=== PATIENT | male | born 1990 | race Caucasian/White ===

== ENCOUNTER 2024-03-18 07:38 | Emergency (ER) | payer OTHER ==
[2024-03-18 07:58] VITALS: BP 157/82; PULSE 99; RESP 20; TEMP 98.6; BMI 33.0
[2024-03-18] MEDS ORDERED: ACETAMINOPHEN 500 MG TABLET (FP) ONE (08:17)
[2024-03-18] MEDS ORDERED: LIDOCAINE 4% PATCH TP ONE (08:17)
[2024-03-18] MEDS: LIDOCAINE 4% PATCH TP ONE (08:27)
[2024-03-18] MEDS: ACETAMINOPHEN 500 MG TABLET (FP) PO ONE (08:27)
[2024-03-18 10:53] LABS: URINE APPEARANCE CLEAR; URINE BILIRUBIN NEGATIVE (NEGATIVE); URINE COLOR YELLOW; URINE GLUCOSE (UA) NEGATIVE (NEGATIVE); URINE KETONE TRACE (NEGATIVE); URINE UROBILINOGEN 0.2 mg/dL (0.2-1.0)
[2024-03-18 10:54] LABS: URINE LEUK ESTERASE NEGATIVE (NEGATIVE); URINE NITRITE NEGATIVE (NEGATIVE); URINE PROTEIN NEGATIVE (NEGATIVE)
[2024-03-18] MEDS ORDERED: LIDOCAINE PATCH REMOVAL MC ONE (22:00)
== END 2024-03-18 12:10 | disposition home or self-care (01) ==
LOC: JERFT 07:38 → JER 07:38 → JERFT 12:10
DX: S39.012A Strain of muscle, fascia and tendon of lower back, initial encounter (principal); X50.1XXA Overexertion from prolonged static or awkward postures, initial encounter
CPT/HCPCS: 81003; 87086; 99283-25